=== PATIENT | female | born 1960 | race Caucasian/White ===

== ENCOUNTER 2018-07-20 13:28 | Outpatient (CLI) | payer BC ==
--- NOTE | 2018-07-20 17:49 | BD ---
DEXA BONE MINERAL DENSITOMETRY STUDY 07/20/18 HISTORY: Postmenopausal. FINDINGS: Lumbar Spine: BMD (g/cm2) L1 0.774 T-Score: -2.0 Z-Score: -0.8 L2 0.807 T-Score: -2.0 Z-Score: -0.7 L3 0.814 T-Score: -2.5 Z-Score: -1.1 L4 0.737 T-Score: -2.9 Z-Score: -1.5 L1-L4 0.782 T-Score: -2.4 Z-Score: -1.1 Left Femoral Neck: 0.636 T-Score: -1.9 Z-Score: -0.7 Total Femur: 0.753 T-Score: -1.5 Z-Score: -0.7 There is right convexed scoliosis of the lumbar spine with mild degenerative changes in the lumbar sp ine. Impression: 1. Moderate osteopenia of the lumbar spine. 2. Mild osteopenia of the left femoral neck. 3. The ten year major osteoporotic risk fracture is 8% with ten year hip fracture risk of 1%. POS: PIEDAD
== END 2018-07-20 13:29 | disposition home or self-care (01) ==
LOC: BICMAMMO 13:28
PROVIDERS: ATTEND Family Medicine
DX: Z12.31 Encounter for screening mammogram for malignant neoplasm of breast (principal); N95.1 Menopausal and female climacteric states; M85.89 Other specified disorders of bone density and structure, multiple sites; Z80.3 Family history of malignant neoplasm of breast
CPT/HCPCS: 77063; 77067; 77080

== ENCOUNTER 2019-09-04 15:10 | Outpatient (CLI) | payer BC ==
--- NOTE | 2019-09-04 16:33 | MMO ---
Bilateral MAMMO Bilat Screen [facility]. CLINICAL HISTORY: Patient is 59 years old and is seen for screening. The patient has no personal history of cancer. VIEWS: The views performed were: bilateral craniocaudal with tomosynthesis and bilateral mediolateral oblique with tomosynthesis. FILMS COMPARED: The present examination has been compared to prior imaging studies performed at [facility] on 06/28/2012, 09/11/2014, 04/27/2017 and 07/20/2018. This study has been interpreted with the assistance of computer-aided detection. MAMMOGRAM FINDINGS: The breasts are extremely dense, which may lower the sensitivity of mammography. There are no suspicious masses, suspicious calcifications, or new areas of architectural distortion. IMPRESSION: THERE IS NO MAMMOGRAPHIC EVIDENCE OF MALIGNANCY. A ROUTINE FOLLOW-UP MAMMOGRAM IN 1 YEAR IS RECOMMENDED. THE RESULTS OF THIS EXAM WERE SENT TO THE PATIENT. ACR BI-RADS Category 1 - Negative MAMMOGRAPHY NOTE: 1. A negative mammogram report should not delay a biopsy if a dominant of clinically suspicious mass is present. 2. Approximately 10% to 15% of breast cancers are not detected by mammography. 3. Adenosis and dense breasts may obscure an underlying neoplasm. Reported by: MARJ MARTINEZ MD Electonically Signed: [id number]
== END 2019-09-04 15:11 | disposition home or self-care (01) ==
LOC: BICMAMMO 15:10
PROVIDERS: ATTEND Family Medicine
DX: Z12.31 Encounter for screening mammogram for malignant neoplasm of breast (principal)
CPT/HCPCS: 77063; 77067

== ENCOUNTER 2020-11-04 14:22 | Outpatient (CLI) | payer BC ==
--- NOTE | 2020-11-04 14:59 | MMO ---
Bilateral MAMMO Bilat Screen [facility]. CLINICAL HISTORY: Patient is 60 years old and is seen for screening. The patient has no family history of breast cancer. The patient has no personal history of cancer. VIEWS: The views performed were: bilateral craniocaudal with tomosynthesis and bilateral mediolateral oblique with tomosynthesis. FILMS COMPARED: The present examination has been compared to prior imaging studies performed at [facility] on 09/11/2014, 04/27/2017, 07/20/2018 and 09/04/2019. This study has been interpreted with the assistance of computer-aided detection. MAMMOGRAM FINDINGS: The breasts are heterogeneously dense, which could obscure a lesion on mammography. There are no suspicious masses, suspicious calcifications, or new areas of architectural distortion. IMPRESSION: THERE IS NO MAMMOGRAPHIC EVIDENCE OF MALIGNANCY. A ROUTINE FOLLOW-UP MAMMOGRAM IN 1 YEAR IS RECOMMENDED. THE RESULTS OF THIS EXAM WERE SENT TO THE PATIENT. ACR BI-RADS Category 1 - Negative MAMMOGRAPHY NOTE: 1. A negative mammogram report should not delay a biopsy if a dominant of clinically suspicious mass is present. 2. Approximately 10% to 15% of breast cancers are not detected by mammography. 3. Adenosis and dense breasts may obscure an underlying neoplasm. Reported by: JEAN PAUL FERNANDEZ MD Electonically Signed: [id number]
--- NOTE | 2020-11-04 15:06 | BD ---
BONE DENSITOMETRY USING DEXA: Date: 11/04/2020 HISTORY: Postmenopausal screening for osteoporosis. FINDINGS: Lumbar Spine: BMD (g/cm2) L1 0.781 T-Score: -1.9 Z-Score: -0.6 L2 0.833 T-Score: -1.8 Z-Score: -0.3 L3 0.844 T-Score: -2.2 Z-Score: -0.6 L4 0.812 T-Score: -2.3 Z-Score: -0.7 L1-L4 0.818 T-Score: -2.1 Z-Score: -0.6 Femoral Neck: 0.633 T-Score: -1.9 Z-Score: -0.6 Total Femur: 0.760 T-Score: -1.5 Z-Score: -0.5 The 10 year fracture risk for a major osteoporotic fracture is 8.6% and for a hip fracture is 1.1%. IMPRESSION: Osteopenia. POS: AH
== END 2020-11-04 14:23 | disposition home or self-care (01) ==
LOC: BICMAMMO 14:22
PROVIDERS: ATTEND Physician Assistant
DX: Z12.31 Encounter for screening mammogram for malignant neoplasm of breast (principal); M85.89 Other specified disorders of bone density and structure, multiple sites; Z78.0 Asymptomatic menopausal state
CPT/HCPCS: 77063; 77067; 77080

== ENCOUNTER 2021-12-04 08:20 | Outpatient (CLI) | payer BC | END 2021-12-04 08:21 | disposition home or self-care (01) | LOC: BICMAMMO 08:20 | PROVIDERS: ATTEND Physician Assistant | DX: Z12.31 Encounter for screening mammogram for malignant neoplasm of breast (principal); Z80.3 Family history of malignant neoplasm of breast | CPT/HCPCS: 77063; 77067 ==

== ENCOUNTER 2024-03-13 14:47 | Outpatient (CLI) | payer BC | END 2024-03-13 14:48 | disposition home or self-care (01) | LOC: BICMAMMO 14:47 | PROVIDERS: ATTEND Nurse Practitioner Family | DX: Z12.31 Encounter for screening mammogram for malignant neoplasm of breast (principal); Z80.3 Family history of malignant neoplasm of breast | CPT/HCPCS: 77063; 77067 ==

== ENCOUNTER 2025-04-16 14:09 | Outpatient (CLI) | payer BC | END 2025-04-16 14:10 | disposition home or self-care (01) | LOC: BICMAMMO 14:09 | PROVIDERS: ATTEND Nurse Practitioner Family | DX: Z12.31 Encounter for screening mammogram for malignant neoplasm of breast (principal); Z80.3 Family history of malignant neoplasm of breast | CPT/HCPCS: 77063; 77067 ==

== ENCOUNTER 2025-05-17 14:20 | Outpatient (CLI) | payer BC | END 2025-05-17 14:21 | disposition home or self-care (01) | LOC: BICMAMMO 14:20 | PROVIDERS: ATTEND Nurse Practitioner Family | DX: Z78.0 Asymptomatic menopausal state (principal); M81.0 Age-related osteoporosis without current pathological fracture | CPT/HCPCS: 77080 ==